=== PATIENT | male | born 1935 | race Caucasian/White ===

== ENCOUNTER 2017-08-10 11:57 | Emergency (ER) | payer OTHER ==
[2017-08-10 12:10] VITALS: TEMP 97.9
--- NOTE | 2017-08-10 12:11 | CPEKG ---
Heart Rate: 72 RR Interval: 833 P-R Interval: 152 QRSD Interval: 122 QT Interval: 412 QTC Interval: 451 P [place]: 61 QRS [place]: -9 T Wave [place]: 54 EKG Severity - ABNORMAL ECG - EKG Impression: SINUS RHYTHM EKG Impression: LEFT ATRIAL ABNORMALITY EKG Impression: RBBB AND LAFB Electronically Signed By: Azael Cohen 10-Aug-2017 16:19:34
[2017-08-10 12:24] LABS: PLATELET COUNT 133 10^3/uL (150-400)
[2017-08-10 13:33] VITALS: RESP 18
--- NOTE | 2017-08-10 13:37 | EDPHY ---
H & P Stated Complaint: 30 seconds of rapid HR Time Seen by Provider: 08/10/17 12:09 HPI/ROS: CHIEF COMPLAINT: Palpitations HISTORY OF PRESENT ILLNESS: The patient presents to the ED for evaluation of palpitations describes a tachycardia. The symptoms occurred approximately 11 o' clock this morning and lasted for 30 sec. They resolved and have not returned. The patient has had some mild bouts of intermittent tachycardia over the past several weeks. The patient has a history of coronary artery disease status post CABG approximately 13 years ago. The patient denies any history of known arrhythmia. He is not anticoagulated. He has had no recent exertional chest pain or shortness of breath. The patient reports he has been well without febrile symptoms, cough or congestion. REVIEW OF SYSTEMS: A comprehensive 10 point review of systems is otherwise negative aside from elements mentioned in the history of present illness. Source: Patient, Family - Personal History Current Tetanus/Diphtheria Vaccine: Yes Current Tetanus Diphtheria and Acellular Pertussis (TDAP): Yes Tetanus Vaccine Date: WITHIN 10 Y - Medical/Surgical History Hx Asthma: No Hx Chronic Respiratory Disease: No Hx Diabetes: No Hx Cardiac Disease: Yes Hx Renal Disease: No Hx Cirrhosis: No Hx Alcoholism: No Hx HIV/AIDS: No Hx Splenectomy or Spleen Trauma: No Other PMH: CABG, hip surgery - Social History Smoking Status: Former smoker - Physical Exam Exam: General Appearance: Elderly male, no acute distress Eyes: Pupils equal and round no pallor or injection ENT, Mouth: Mucous membranes moist Respiratory: There are no retractions, lungs are clear to auscultation Cardiovascular: Regular rate and rhythm Gastrointestinal: Abdomen is soft and nontender, no masses, bowel sounds normal Neurological: A&O, normal motor function, normal sensory exam, normal cranial nerves Skin: Warm and dry, no rashes Musculoskeletal: Neck is supple nontender Extremities: symmetrical, full range of motion Constitutional: Initial Vital Signs Temperature (C) 36.6 C 08/10/17 12:03 Heart Rate 71 08/10/17 12:03 Respiratory Rate 16 08/10/17 12:03 Blood Pressure 166/71 H 08/10/17 12:03 O2 Sat (%) 97 08/10/17 12:03 O2 Delivery Mode Room Air Allergies/Adverse Reactions: levofloxacin [From Levaquin] Allergy (Severe, Verified 11/02/09 07:42) Other-Enter Comments ENVIRONMENTAL- CERTAIN PLANTS Allergy (Mild, Uncoded 02/10/13 16:23) RUNNY NOSE Home Medications: Medication Instructions Recorded Atorvastatin Calcium [Lipitor 40 40 mg PO DAILY@1800 02/03/13 mg (RX)] Clopidogrel Bisulfate [Plavix (RX)] 75 mg PO DAILY 02/03/13 Metoprolol Tartrate [Lopressor] 50 mg PO BID 02/03/13 Reconcilled 02/17 Dwd 02/17/13 Ferrous Sulfate [Slow Fe 140 MG 140 mg PO DAILY 02/20/13 (OTC)] Pharmacy Complete 02/20/13 02/20/13 Rivaroxaban [Xarelto] 10 mg PO DAILY 02/20/13 Tramadol HCl 100 mg PO BID PRN 02/20/13 Medical Decision Making - Diagnostics EKG Interpretation: EKG: Complete interpretation has been separately recorded in the [facility] archive. Summary impression: Sinus rhythm, bifascicular block. ED Course/Re-evaluation: The patient presents to the ED after an episode of resolved palpitations. The patient was placed on a campus monitor without any arrhythmia noted over a 2 hr period. The patient's laboratory studies are unremarkable. The patient has had no history of exertional chest pain or shortness of breath and nothing to suggest acute coronary syndrome. 1:40 p.m.: The patient's laboratory studies are unremarkable. The patient has had no arrhythmia emergency department. His troponin is normal. I do feel the patient can be discharged home with instructions to return to the ED for any persistent arrhythmia, chest pain, difficulty breathing or other concerns. The patient will follow up with his regular strategy intern Dr. Alvin Moctezuma for consideration of a Holter monitor. Differential Diagnosis: Differential diagnosis considered includes atrial fibrillation, SVT, ventricular tachycardia, PVCs - Data Points Laboratory Results: Laboratory Results 08/10/17 12:05 08/10/17 12:05 08/10/17 08/10/17 12:05 12:05 WBC 6.42 10^3/uL 10^3/uL (3.80-9.50) RBC 4.51 10^6/uL 10^6/uL (4.40-6.38) Hgb 15.3 g/dL g/dL (13.7-17.5) Hct 45.9 % % (40.0-51.0) MCV 101.8 fL H fL (81.5-99.8) MCH 33.9 pg pg (27.9-34.1) MCHC 33.3 g/dL g/dL (32.4-36.7) RDW 12.2 % % (11.5-15.2) Plt Count 133 10^3/uL L 10^3/uL (150-400) MPV 10.2 fL fL (8.7-11.7) Neut % (Auto) 51.5 % % (39.3-74.2) Lymph % (Auto) 35.7 % % (15.0-45.0) [place] % (Auto) 9.8 % % (4.5-13.0) Eos % (Auto) 2.2 % % (0.6-7.6) Baso % (Auto) 0.6 % % (0.3-1.7) Nucleat RBC Rel Count 0.0 % % (0.0-0.2) Absolute Neuts (auto) 3.31 10^3/uL 10^3/uL (1.70-6.50) Absolute Lymphs (auto) 2.29 10^3/uL 10^3/uL (1.00-3.00) Absolute Monos (auto) 0.63 10^3/uL 10^3/uL (0.30-0.80) Absolute Eos (auto) 0.14 10^3/uL 10^3/uL (0.03-0.40) Absolute Basos (auto) 0.04 10^3/uL 10^3/uL (0.02-0.10) Absolute Nucleated RBC 0.00 10^3/uL 10^3/uL (0-0.01) Immature Gran % 0.2 % % (0.0-1.1) Immature Gran # 0.01 10^3/uL 10^3/uL (0.00-0.10) Sodium 141 mEq/L mEq/L (135-145) Potassium 4.4 mEq/L mEq/L (3.5-5.2) Chloride 104 mEq/L mEq/L (97-110) Carbon Dioxide 27 mEq/l mEq/l (22-31) Anion Gap 10 mEq/L mEq/L (8-16) BUN 21 mg/dL mg/dL (7-23) Creatinine 1.1 mg/dL mg/dL (0.7-1.3) Estimated GFR > 60 Glucose 96 mg/dL mg/dL (70-100) Calcium 9.0 mg/dL mg/dL (8.5-10.4) Troponin I < 0.012 ng/mL ng/mL (0.000-0.034) Departure - Departure Disposition: Home, Routine, Self-Care Clinical Impression: Palpitations Condition: Good Instructions: Heart Palpitations (DC) Additional Instructions: 1. Please return to the emergency department this weekend for any chest pain, shortness of breath, recurrent arrhythmia or other concerns. 2. Please contact your strategy intern Dr. Alvin Moctezuma on Saturday to schedule a follow-up visit and to discuss the indications for a possible Holter monitor. 3. Your laboratory testing, EKG Referrals: Airam Tenorio MD [Primary Care Provider] - As per Instructions
[2017-08-10 13:59] VITALS: BP 117/65; PULSE 60; O2SAT 97
== END 2017-08-10 13:59 | disposition home or self-care (01) ==
DX: R00.2 Palpitations (principal); Z79.01 Long term (current) use of anticoagulants; Z87.891 Personal history of nicotine dependence

== ENCOUNTER 2018-03-04 08:33 | Emergency (ER) | payer OTHER ==
--- NOTE | 2018-03-04 09:08 | EDPHY ---
H & P Stated Complaint: memory loss Time Seen by Provider: 03/04/18 08:53 HPI/ROS: CHIEF COMPLAINT: Episodic confusion HISTORY OF PRESENT ILLNESS: The patient presents to the ED for evaluation of confusion that occurred earlier today. The patient reportedly woke up at his normal time at about 5 o'clock this morning. He was reviewing a bank statement and was quite confused about the charges which were appearing. He had no recollection of the purchases listed on the statement. He became concerned that he was possibly having a stroke prompting his visit to the emergency department. The patient denies any complaints of peripheral numbness, weakness , difficulty with speech or ambulation. He denies any history of fall trauma or acute headache. The patient does have a history of coronary artery disease. The patient is currently on aspirin and Plavix. REVIEW OF SYSTEMS: A comprehensive 10 point review of systems is otherwise negative aside from elements mentioned in the history of present illness. - Personal History Current Tetanus/Diphtheria Vaccine: Yes Current Tetanus Diphtheria and Acellular Pertussis (TDAP): Yes Tetanus Vaccine Date: WITHIN 10 Y - Medical/Surgical History Hx Asthma: No Hx Chronic Respiratory Disease: No Hx Diabetes: No Hx Cardiac Disease: Yes Hx Renal Disease: No Hx Cirrhosis: No Hx Alcoholism: No Hx HIV/AIDS: No Hx Splenectomy or Spleen Trauma: No Other PMH: CABG, JENNYFER hip surgery, cardiac stents, colon resection - Social History Smoking Status: Former smoker - Physical Exam Exam: General Appearance: Alert, no distress Eyes: Pupils equal and round no pallor or injection ENT, Mouth: Mucous membranes moist Respiratory: There are no retractions, lungs are clear to auscultation Cardiovascular: Regular rate and rhythm Gastrointestinal: Abdomen is soft and nontender, no masses, bowel sounds normal Neurological: A&O, normal motor function, normal sensory exam, normal cranial nerves Skin: Warm and dry, no rashes Musculoskeletal: Neck is supple nontender Extremities: symmetrical, full range of motion Psychiatric: Patient is oriented X 3, there is no agitation Constitutional: Initial Vital Signs Temperature (C) 37 C 03/04/18 08:40 Heart Rate 102 H 03/04/18 08:40 Respiratory Rate 16 03/04/18 08:40 Blood Pressure 195/92 H 03/04/18 08:40 O2 Sat (%) 96 03/04/18 08:40 O2 Delivery Mode Room Air Allergies/Adverse Reactions: levofloxacin [From Levaquin] Allergy (Severe, Verified 03/04/18 08:39) Other-Enter Comments ENVIRONMENTAL- CERTAIN PLANTS Allergy (Mild, Uncoded 03/04/18 08:39) RUNNY NOSE Home Medications: Medication Instructions Recorded Atorvastatin Calcium [Lipitor 40 40 mg PO DAILY@1800 02/03/13 mg (RX)] Clopidogrel Bisulfate [Plavix (RX)] 75 mg PO DAILY 02/03/13 Metoprolol Tartrate [Lopressor] 50 mg PO BID 02/03/13 Aspirin 03/04/18 Lisinopril 03/04/18 Medical Decision Making - Diagnostics Imaging Results: Imaging Impressions Brain MRI 03/04/18 09:04 Impression: 1. Mild age-related cerebral atrophy. 2. Stable moderate nonspecific hyperintense T2/FLAIR signal abnormalities in the white matter of bilateral cerebral hemispheres. Differential diagnosis includes microvascular ischemic disease, post-infectious/post-inflammatory sequela, atypical demyelinating disease, or migraine-related sequela. 3. No acute infarct, hemorrhage, hydrocephalus, mass effect, or herniation. If symptoms worsen, additional imaging may be necessary. Findings discussed with Azael Cohen MD at 11:23 hour, 03/04/2018. ED Course/Re-evaluation: The patient presents to the ED after an episode of transient confusion and forgetfulness. There may have been a component of TGA. The patient arrived and was noted to be neurologically intact. The patient was taken for an MRI which demonstrates no evidence of an acute stroke. The patient's blood pressure is currently 160/100 at 11:30 a.m. His neurologic examination remains unremarkable with an NIH stroke scale is 0. At this point time I do feel the patient can be discharged home and continue to take his aspirin and Plavix. The patient should return to the emergency department for any worsening symptoms or other concerns. Differential Diagnosis: Differential diagnosis considered includes intracranial hemorrhage, ischemic stroke, TIA, TGA - Data Points Laboratory Results: Laboratory Results 03/04/18 08:55 03/04/18 08:55 03/04/18 03/04/18 08:55 08:55 WBC 4.52 10^3/uL 10^3/uL (3.80-9.50) RBC 4.24 10^6/uL L 10^6/uL (4.40-6.38) Hgb 14.6 g/dL g/dL (13.7-17.5) Hct 43.7 % % (40.0-51.0) MCV 103.1 fL H fL (81.5-99.8) MCH 34.4 pg H pg (27.9-34.1) MCHC 33.4 g/dL g/dL (32.4-36.7) RDW 13.0 % % (11.5-15.2) Plt Count 134 10^3/uL L 10^3/uL (150-400) MPV 10.1 fL fL (8.7-11.7) Neut % (Auto) 74.8 % H % (39.3-74.2) Lymph % (Auto) 12.8 % L % (15.0-45.0) [place] % (Auto) 10.8 % % (4.5-13.0) Eos % (Auto) 0.7 % % (0.6-7.6) Baso % (Auto) 0.7 % % (0.3-1.7) Nucleat RBC Rel Count 0.0 % % (0.0-0.2) Absolute Neuts (auto) 3.38 10^3/uL 10^3/uL (1.70-6.50) Absolute Lymphs (auto) 0.58 10^3/uL L 10^3/uL (1.00-3.00) Absolute Monos (auto) 0.49 10^3/uL 10^3/uL (0.30-0.80) Absolute Eos (auto) 0.03 10^3/uL 10^3/uL (0.03-0.40) Absolute Basos (auto) 0.03 10^3/uL 10^3/uL (0.02-0.10) Absolute Nucleated RBC 0.00 10^3/uL 10^3/uL (0-0.01) Immature Gran % 0.2 % % (0.0-1.1) Immature Gran # 0.01 10^3/uL 10^3/uL (0.00-0.10) Platelet Estimate Not Reported Sodium 139 mEq/L mEq/L (135-145) Potassium 4.1 mEq/L mEq/L (3.3-5.0) Chloride 102 mEq/L mEq/L (97-110) Carbon Dioxide 29 mEq/l mEq/l (22-31) Anion Gap 8 mEq/L mEq/L (8-16) BUN 17 mg/dL mg/dL (7-23) Creatinine 0.8 mg/dL mg/dL (0.7-1.3) Estimated GFR > 60 Glucose 146 mg/dL H mg/dL (70-100) Calcium 8.9 mg/dL mg/dL (8.5-10.4) Departure - Departure Disposition: Home, Routine, Self-Care Clinical Impression: Transient confusion Condition: Good Instructions: Altered Mental Status (ED) Additional Instructions: 1. Your MRI demonstrates no evidence of a stroke, tumor or bleed. 2. Please return to the ED for any developing neurologic symptoms including numbness, weakness, difficulty with speech or walking. 3. Please follow up with your primary care provider as scheduled. Referrals: Airam Tenorio MD [Primary Care Provider] - As per Instructions
[2018-03-04 09:17] LABS: PLATELET COUNT 134 10^3/uL (150-400)
[2018-03-04 11:38] VITALS: BP 174/75
== END 2018-03-04 12:00 | disposition home or self-care (01) ==
DX: R41.0 Disorientation, unspecified (principal); Z87.891 Personal history of nicotine dependence